=== PATIENT | male | born 1945 | race Caucasian/White ===

== ENCOUNTER 2017-01-19 17:32 | Emergency (ER) | payer OTHER ==
[2017-01-19 17:47] VITALS: TEMP 98.4
--- NOTE | 2017-01-19 19:01 | EDPHY ---
H & P Stated Complaint: L upper abd pain nausea weak since colonoscopy tues - Personal History Current Tetanus/Diphtheria Vaccine: Unsure Current Tetanus Diphtheria and Acellular Pertussis (TDAP): Unsure Tetanus Vaccine Date: 2005 - Medical/Surgical History Hx Asthma: Yes Hx Chronic Respiratory Disease: No Hx Diabetes: No Hx Cardiac Disease: Yes Hx Renal Disease: No Hx Cirrhosis: No Hx Alcoholism: No Hx HIV/AIDS: No Hx Splenectomy or Spleen Trauma: No Other PMH: pmh- Asthma,HTN, Hyperlipidemia, hypothyroidism, VA (2005). psh- Stentx1, cholecystectomy, ortho surgery, appy - Social History Smoking Status: Former smoker Time Seen by Provider: 01/19/17 19:01 Constitutional: Initial Vital Signs Temperature (C) 36.9 C 01/19/17 17:45 Heart Rate 81 01/19/17 17:45 Respiratory Rate 17 01/19/17 17:45 Blood Pressure 129/61 H 01/19/17 17:45 O2 Sat (%) 98 01/19/17 17:45 O2 Delivery Mode Room Air Allergies/Adverse Reactions: Sulfa (Sulfonamide Antibiotics) Allergy (Unknown, Verified 05/12/15 17:36) nickel [Nickel] Allergy (Verified 05/12/15 17:36) Home Medications: Medication Instructions Recorded Aspirin [Aspirin 325 mg (*)] 325 mg PO HS 12/08/11 Montelukast Sodium [Singulair 10 10 mg PO DAILY@1800 12/08/11 mg (*)] Multivitamins [Multivitamin (*)] 1 each PO DAILY 12/08/11 Niacin ER [Niaspan 500 mg (*)] 500 mg PO HS 12/08/11 Valsartan [Diovan] 320 mg PO DAILY@09 12/08/11 Albuterol [Proventil Inhaler HFA 2 puffs IH DAILY PRN 05/06/15 (*)] Calcium Citrate 1,000 mg PO DAILY 05/06/15 Cholecalciferol Vit D3 [Vitamin D3 1,000 units PO DAILY 05/06/15 (*)] Cyanocobalamin [Vitamin B12 (*)] 1,000 mcg PO DAILY 05/06/15 Ferrous Sulfate [Ferrous Sulf 325 325 mg PO DAILY 05/06/15 MG (*)] Furosemide [Lasix 40 MG (*)] 40 mg PO DAILY 05/06/15 Herbals/Supplements -Info Only 1 ea PO DAILY 05/06/15 Levothyroxine [Synthroid 150 mcg 150 mcg PO DAILY@00 05/06/15 (*)] [place]-3 Fatty Acids [Fish Oil 1000 2,000 mg PO HS 05/06/15 mg (*)] Salicylic Acid/Ceramide Cmb #1 1 brittney TP DAILY 05/06/15 [Salicylic Acid 6% Lotion Kit] Medical Decision Making - Diagnostics Imaging Results: CT abdomen pelvis with IV contrast shows no evidence of perforation. It is reviewed by me and discussed with Dr. Peraza [facility] Course/Re-evaluation: CHIEF COMPLAINT: LUQ HISTORY OF PRESENT ILLNESS: The patient is a 71 y/o male arriving with his complaining of persistent LUQ pain since his colonoscopy on Sunday, [address] Seth performed the procedure Sunday and the patient reports he found diverticulosis, but no other abnormalities and did not perform any biopsies. Directly after waking from the procedure he noticed soreness in his left upper quadrant. Yesterday he felt increasingly fatigued and weak. The pain has persisted and is associated with nausea currently. Pain is mild in severity. He denies fever, chills, diarrhea, vomiting, or other complaints. No anticoagulants. REVIEW OF SYSTEMS: A 10 point review of systems was performed and is negative with the exception of the elements mentioned in the history of present illness. PHYSICAL EXAM: HR, BP, O2 Sat, RR. Temp noted General Appearance: Alert, well hydrated, appropriate, and non-toxic appearing. Head: Atraumatic without scalp tenderness or obvious injury Eyes: Pupils equal, round, reactive to light and accommodation, EOMI, no trauma , no injection. Nose: Atraumatic, no rhinorrhea, clear. Throat: mucus membranes moist. Neck: Supple, nontender, no lymphadenopathy. Respiratory: No retractions, no distress, no wheezes, and no accessory muscle use. Lungs are clear to auscultation bilaterally. Cardiovascular: Regular rate and rhythm, no murmurs, rubs, or gallops. Good capillary refill all extremities. Gastrointestinal: Abdomen is soft, left paracolic gutter tenderness, non- distended, no masses, no rebound, no guarding, no peritoneal signs. Musculoskeletal: Normal active ROM of all extremities, atraumatic. Neurological: Alert, appropriate, and interactive. Nonfocal neuro exam. Skin: No rashes, good turgor, no nodules on palpation. Past medical history: Diverticulosis, hyperlipidemia, VA, hypertension Past surgical history: Stent, Colonoscopy 01/16/17 Family history: noncontributory Social history: , at bedside. GI: Dr. Seth DIFFERENTIAL DIAGNOSIS: The differential diagnosis for the patient's abdominal pain included but was not limited to complication from colonoscopy, appendicitis , cholecystitis, hernias, testicular torsion, gastritis, and urinary tract infection. MEDICAL DECISION MAKING: This is a 71 y/o male who presents with persistent LUQ pain following his colonoscopy 3 days ago with associated fatigue and nausea. He has left paracolic gutter tenderness on exam. He is hemodynamically stable. Plan for abdominal CT to rule out perforation from colonoscopy or other acute process. IV established. Labs drawn including CBC, CHEM, lipase, LFTs. He declines pain medication at this time. 2100: Patient care signed out to Dr. Caal at shift change pending abdominal CT. (Jarrod Berry) Re-evaluation 9:30 p.m.--patient is stable. I discussed imaging and lab results with the patient and his . We discussed treatment plan including criteria for return importance of follow-up and further evaluation. They expressed understanding and agreement (Chris Caal) Differential Diagnosis: The concern was for bowel perforation or abscess (Chris Caal) - Data Points Laboratory Results: Laboratory Results 01/19/17 19:15 01/19/17 19:15 01/19/17 01/19/17 01/19/17 19:43 19:15 19:15 WBC 7.28 10^3/uL 10^3/uL (3.80-9.50) RBC 4.52 10^6/uL 10^6/uL (4.40-6.38) Hgb 14.1 g/dL g/dL (13.7-17.5) POC Hgb 13.6 gm/dL L gm/dL (14.5-17.3) Hct 41.4 % % (40.0-51.0) POC Hct 40 % L % (42.8-50.6) MCV 91.6 fL fL (81.5-99.8) MCH 31.2 pg pg (27.9-34.1) MCHC 34.1 g/dL g/dL (32.4-36.7) RDW 12.9 % % (11.5-15.2) Plt Count 230 10^3/uL 10^3/uL (150-400) MPV 11.4 fL fL (8.7-11.7) Neut % (Auto) 59.2 % % (39.3-74.2) Lymph % (Auto) 20.5 % % (15.0-45.0) Jerome % (Auto) 12.1 % % (4.5-13.0) Eos % (Auto) 6.6 % % (0.6-7.6) Baso % (Auto) 1.2 % % (0.3-1.7) Nucleat RBC Rel Count 0.0 % % (0.0-0.2) Absolute Neuts (auto) 4.31 10^3/uL 10^3/uL (1.70-6.50) Absolute Lymphs (auto) 1.49 10^3/uL 10^3/uL (1.00-3.00) Absolute Monos (auto) 0.88 10^3/uL H 10^3/uL (0.30-0.80) Absolute Eos (auto) 0.48 10^3/uL H 10^3/uL (0.03-0.40) Absolute Basos (auto) 0.09 10^3/uL 10^3/uL (0.02-0.10) Absolute Nucleated RBC 0.00 10^3/uL 10^3/uL (0-0.01) Immature Gran % 0.4 % % (0.0-1.1) Immature Gran # 0.03 10^3/uL 10^3/uL (0.00-0.10) POC Sodium 141 mEq/L mEq/L (134-144) Sodium 138 mEq/L mEq/L (134-144) POC Potassium 4.2 mEq/L mEq/L (3.3-5.0) Potassium 4.6 mEq/L mEq/L (3.5-5.2) POC Chloride 106 mEq/L mEq/L (96-108) Chloride 108 mEq/L mEq/L (97-110) Carbon Dioxide 23 mEq/l mEq/l (22-31) Anion Gap 7 mEq/L L mEq/L (8-16) POC BUN 34 mg/dL H mg/dL (7-23) BUN 37 mg/dL H mg/dL (7-23) Creatinine 0.9 mg/dL mg/dL (0.7-1.3) POC Creatinine 1.0 mg/dL mg/dL (0.8-1.5) Estimated GFR > 60 Glucose 92 mg/dL mg/dL (70-100) POC Glucose 96 mg/dL mg/dL (70-100) Calcium 9.7 mg/dL mg/dL (8.5-10.4) Total Bilirubin 0.5 mg/dL mg/dL (0.1-1.4) Conjugated Bilirubin 0.4 mg/dL mg/dL (0.0-0.5) Unconjugated Bilirubin 0.1 mg/dL mg/dL (0.0-1.1) AST 22 IU/L IU/L (17-59) ALT 29 IU/L IU/L (21-72) Alkaline Phosphatase 71 IU/L IU/L (38-126) Total Protein 6.4 g/dL g/dL (6.3-8.2) Albumin 4.0 g/dL g/dL (3.5-5.0) Lipase 101.0 IU/L IU/L (23-300) Point of Care Test Results: 01/19/17 19:43 POC Sodium 141 POC Potassium 4.2 POC Chloride 106 POC BUN 34 H POC Creatinine 1.0 POC Glucose 96 Departure - Departure Disposition: Home, Routine, Self-Care Clinical Impression: Abdominal pain Qualifiers: Abdominal location: left lower quadrant Qualified Code(s): R10.32 - Left lower quadrant pain Condition: Good Instructions: Abdominal Pain (ED) Additional Instructions: Return for worsening pain, fever, vomiting. Recheck with Dr. Seth on Sunday or Sunday for continuing symptoms Referrals: Swathi Tanner MD [Primary Care Provider] - As per Instructions Efren Seth MD [[facility] [place] Primary Care Provider] - As per Instructions Report Scribed for: Jarrod Berry Report Scribed by: Connie Cueva Date of Report: 01/19/17 Time of Report: 20:51
[2017-01-19 19:42] LABS: % IMMATURE GRANULYOCYTES 0.4 % (0.0-1.1); ABSOLUTE IMMATURE GRANULOCYTES 0.03 10^3/uL (0.00-0.10); ADD DIFF? NO; ADD MORPH? NO; ADD SCAN? NO; ATYPICAL LYMPHOCYTE FLAG 0 (0-99); FRAGMENT RBC FLAG 0 (0-99); HEMATOCRIT 41.4 % (40.0-51.0); HEMOGLOBIN 14.1 g/dL (13.7-17.5); LEFT SHIFT FLG 0 (0-99); LIPEMIA HEMOLYSIS FLAG 90 (0-99); MEAN CELL HEMOGLOBIN 31.2 pg (27.9-34.1); MEAN CELL HEMOGLOBIN CONCENTR. 34.1 g/dL (32.4-36.7); MEAN CELL VOLUME 91.6 fL (81.5-99.8); MEAN PLATELET VOLUME 11.4 fL (8.7-11.7); PLATELET CLUMPS FLAG 0 (0-99); PLATELET COUNT 230 10^3/uL (150-400); RED BLOOD CELL COUNT 4.52 10^6/uL (4.40-6.38); RED CELL DISTRIBUTION WIDTH 12.9 % (11.5-15.2)
[2017-01-19 19:49] LABS: ALANINE AMINOTRANSFERASE 29 IU/L (21-72); ALKALINE PHOSPHATASE 71 IU/L (38-126); ANION GAP 7 mEq/L (8-16); ASPARTATE AMINOTRANSFERASE 22 IU/L (17-59); BILIRUBIN,TOTAL 0.5 mg/dL (0.1-1.4); BILIRUBIN-CONJUGATED 0.4 mg/dL (0.0-0.5); BILIRUBIN-UNCONJUGATED 0.1 mg/dL (0.0-1.1); CALCIUM 9.7 mg/dL (8.5-10.4); CARBON DIOXIDE 23 mEq/l (22-31); CHLORIDE 108 mEq/L (97-110); CREATININE 0.9 mg/dL (0.7-1.3); GLOMERULAR FILTRATION RATE > 60; GLUCOSE 92 mg/dL (70-100); POTASSIUM 4.6 mEq/L (3.5-5.2); SODIUM 138 mEq/L (134-144); TOTAL PROTEIN 6.4 g/dL (6.3-8.2)
[2017-01-19] MEDS ORDERED: IOPAMIDOL (ISOVUE-300) 100 ML BTL ONE (20:02)
[2017-01-19 20:38] VITALS: RESP 16
[2017-01-19 21:54] VITALS: BP 132/73; PULSE 49; O2SAT 95
== END 2017-01-19 21:55 | disposition home or self-care (01) ==
DX: R10.32 Left lower quadrant pain (principal); J45.909 Unspecified asthma, uncomplicated; I10 Essential (primary) hypertension; I25.2 Old myocardial infarction; Z79.82 Long term (current) use of aspirin; Z87.891 Personal history of nicotine dependence; Z95.5 Presence of coronary angioplasty implant and graft
CPT/HCPCS: 82947-QW; Q9967

== ENCOUNTER → 2017-04-04 | Outpatient (CLI) | payer OTHER | LOC: BMCIMAGING 09:59 | PROVIDERS: ATTEND Orthopaedic Surgery | DX: M25.551 Pain in right hip (principal); Z96.641 Presence of right artificial hip joint ==

== ENCOUNTER → 2017-10-24 | Outpatient (CLI) | payer OTHER | LOC: BHFA 10:00 | PROVIDERS: ATTEND Internal Medicine Cardiovascular Disease | DX: R06.02 Shortness of breath (principal) ==

== ENCOUNTER → 2018-07-05 | Outpatient (CLI) | payer OTHER | LOC: FIMAGING 11:17 | PROVIDERS: ATTEND Internal Medicine | DX: I25.10 Atherosclerotic heart disease of native coronary artery without angina pectoris (principal); R06.02 Shortness of breath; I10 Essential (primary) hypertension; I42.9 Cardiomyopathy, unspecified; J02.9 Acute pharyngitis, unspecified ==

== ENCOUNTER → 2018-07-10 | Outpatient (CLI) | payer OTHER | LOC: FIMAGING 10:37 | PROVIDERS: ATTEND Internal Medicine | DX: R06.02 Shortness of breath (principal); I10 Essential (primary) hypertension; I25.10 Atherosclerotic heart disease of native coronary artery without angina pectoris ==

== ENCOUNTER → 2018-07-17 | Outpatient (CLI) | payer OTHER | LOC: BHFA 13:30 | PROVIDERS: ATTEND Internal Medicine Cardiovascular Disease | DX: I42.9 Cardiomyopathy, unspecified (principal); I25.10 Atherosclerotic heart disease of native coronary artery without angina pectoris; I10 Essential (primary) hypertension; R06.02 Shortness of breath | CPT/HCPCS: 78452; 93017; A9500 ==

== ENCOUNTER → 2018-10-30 | Outpatient (CLI) | payer OTHER | LOC: BMCIMAGING 13:15 | PROVIDERS: ATTEND Orthopaedic Surgery | DX: Z47.1 Aftercare following joint replacement surgery (principal); Z96.641 Presence of right artificial hip joint ==